=== PATIENT | female | born 1995 | race Caucasian/White ===

== ENCOUNTER 2017-02-25 06:15 | Inpatient (IN) ==
[2017-02-25] MEDS ORDERED: MEPERIDINE 50 MG/1 ML VIAL IM PRN (07:20)
[2017-02-25] MEDS ORDERED: ONDANSETRON 4 MG/2 ML VIAL IV PRN (07:20)
[2017-02-25] MEDS ORDERED: OXYTOCIN/LR 20 UNIT/1,000 ML BAG IV ONE (07:27)
[2017-02-25] MEDS ORDERED: OXYTOCIN/LR 20 UNIT/1,000 ML BAG IV SCH (07:30)
[2017-02-25] MEDS: LACTATED RINGERS 1,000 ML IV SCH ×2 (07:35→14:36)
[2017-02-25 07:36] LABS: Basophils % 0.3 % (0.0-0.8); Eosinophils # 0.1 10*3/uL (0.0-0.87); Eosinophils % 0.8 % (0.00-10.9); Hematocrit 32.5 VOL% (35.7-47.0); Hemoglobin 10.5 GM/DL (12.0-16.0); Immature Granulocytes % 1.5 %; Immature Granulocytes Absolute 0.15 #; Lymphocytes # 3.2 10*3/uL (1.4-4.0); Mean Corpuscular HGB Conc 32.3 GM/DL (32-36); Mean Corpuscular Hemoglobin 26 PG (27-34); Mean Corpuscular Volume 78.9 FL (87-102); Mean Platelet Volume 10.9 FL (9.6-12.0); Monocytes # 0.6 10*3/uL (0.11-0.8); Monocytes % 5.8 % (1.7-12.7); Neutrophils # 5.9 10*3/uL (1.4-7.4); Neutrophils % 59.6 % (38.7-73.9); Platelet Count 237 T/CUMM (130-400); Red Blood Count 4.12 MC/CUMM (3.8-5.5); Red Cell Distribution Width 13.4 % (9.3-17.3)
[2017-02-25 07:45] LABS: Alanine Aminotransferase 16 U/L (13-56); Albumin 2.7 G/DL (3.4-5.0); Alkaline Phosphatase 133 U/L (45-117); Aspartate Amino Transferase 17 U/L (0-37); Bilirubin,Total < 0.39 MG/DL (0.2-1.0); Blood Urea Nitrogen 9 MG/DL (7-18); Calcium 9.3 MG/DL (8.5-10.1); Glucose 94 MG/DL (74-106); Osmolality,Calculated 275.5 MOS/KG (273-304); Potassium 3.5 MMOL/L (3.5-5.1); Sodium 139 MMOL/L (136-145); Total Protein 6.7 G/DL (6.4-8.3); Uric Acid 5.2 MG/DL (2.6-6.0)
[2017-02-25] MEDS ORDERED: DINOPROSTONE VAG GEL 10 MG SYRINGE VAG ONE ×3 (08:45→17:00)
--- NOTE | 2017-02-25 09:04 | OB/GYN History & Physical ---
History of Present Illness Chief complaint: In for elective induction of labor due to term . History of present illness: Ms. Deng is a 21 year old female who is a primigravida. Her SUE is 2016 for an estimated gestational age of 39 weeks. The patient presents to the labor department for elective induction of labor due to term . The risk and benefits of been thoroughly discussed this patient and significant other, plan of care has been discussed with Dr. Payne and all parties are in agreement plan. The patient began her care at the [facility] and she received routine care and her course was uneventful. labs: She is O+, RPR is nonreactive, hepatitis B negative, HIV negative , rubella is immune, GBS cultures negative. Review of systems is negative with exception of above. Allergies Allergy/AdvReac Type Severity Reaction Status Date / Time No Known Allergies Allergy Verified 02/25/17 07:20 12 point system: reviewed and no additional remarkable complaints except as stated Medical,Surgical,& Family Hx - Medical History Medical History: noncontributory HEENT: History of: Ear Problem (PE TUBES A CHILD) - Surgical History Additional Surgical History: Cleft palate repair; PE tubes - Family History Family History: Reports;: Family Psychiatric Problems (MOTHER WITH MENTAL DISORDER), Additional Family History (THYROID-PGM) Denies;: Family Anesthesia Reaction, Family Cancer, Family Diabetes, Family Heart Disease, Family Hematology, Family Hypertension, Family Stroke - Social History Smoking Status: Never smoker Frequency of Alcohol Use: None Type of Drug Use: Marijuana (Used prior to ) Marital Status: Single Lives With:: Significant Other Functional capacity: independent ambulation 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: Vital Signs Temp Pulse Resp BP Pulse Ox 02/25/17 07:22 97.5 F L 98 H 20 121/66 99 General appearance: no acute distress - Antepartum / Post Antepartum Exam Cervix - Dilatation: 1-2 cm Effacement: 70% Station: -2 Rupture: Intact Presentation: Vertex Heart Rate: 130s Breast: bilateral: normal Abdomen obstetrics: Present: bowel sounds normal Vagina: Present: normal moisture, discharge Uterus exam: Present: enlarged - Head Head exam: Present: normal inspection - Respiratory Respiratory exam: Present: clear to auscultation bilaterally - Cardiovascular Cardiovascular exam: Present: regular rate and rhythm - GI/Abdominal GI/Abdominal exam: Present: normal bowel sounds, soft - Extremities Exam Extremities exam: Present: normal inspection - Back Exam Back exam: Present: normal inspection - Neurological Exam Neurological exam: Present: alert, oriented X3 - Psychiatric Psychiatric exam: Present: normal affect, normal mood - Skin Skin exam: Present: normal color, warm Assessment and Plan (1) Term Status: Acute Assessment and plan: Admit IV fluids IV Pitocin per protocol if indicated Prostin gel per protocol Artificial rupture membranes when appropriate Epidural anesthesia if desired Anticipate Current Visit: Yes Results - Labs CBC & BMP: 02/25/17 06:44 02/25/17 06:44
[2017-02-25] MEDS ORDERED: ePHEDrine 50 MG/ML AMP IV PRN (12:07)
[2017-02-25] MEDS ORDERED: FAMOTIDINE 20 MG/2 ML VIAL IV ONE (12:07)
[2017-02-25] MEDS ORDERED: LACTATED RINGERS 1,000 ML IV ONE (12:07)
[2017-02-25] MEDS ORDERED: CITRIC ACID/SODIUM CITRATE 30 ML UDCUP PO ONE (12:07)
[2017-02-25] MEDS ORDERED: fentaNYL 2 MCG/ROPIV 0.2% EPID 150 ML EPIDURAL SCH (12:08)
[2017-02-25] MEDS ORDERED: diphenhydrAMINE 50 MG/1 ML VIAL IV PRN ×2 (12:08)
[2017-02-25] MEDS ORDERED: hydrOXYzine HCL 25 MG/1 ML VIAL IM PRN (12:08)
[2017-02-25] MEDS ORDERED: BUTALBITAL/ACETAMIN/CAFFEINE 50-325-40 MG TABLET PO PRN (13:51)
[2017-02-25] MEDS ORDERED: SUMAtriptan 6 MG/0.5 ML VIAL SUBCUT ONE (13:51)
[2017-02-25 14:27] LABS: Apearance,Urine CLEAR (Clear); Bilirubin,Urine Negative (Negative); Blood, Urine Negative (Negative); Glucose,Urine (UA) Negative (Negative); Ketones,Urine Negative (Negative); Mucus,Urine Occasional /LPF (Occasional); Nitrite,Urine Negative (Negative); Protein,Urine Negative; RBC,Urine <1 /HPF (0-4); Urine Color Straw (Yellow); Urine Specific Gravity 1.003 (1.001-1.035); Urine Urobilinogen < 2.0 EU/DL (0.2-1.0); WBC,Urine <1 /HPF (0-6)
[2017-02-25] MEDS ORDERED: miSOPROStol 200 MCG TABLET ONE (18:52)
[2017-02-25] MEDS ORDERED: LIDOCAINE 1% 50 ML VIAL ONE (18:52)
--- NOTE | 2017-02-25 19:49 | Event Note ---
HPI: Ms. Sanders is a 21-year-old female who presented to labor department in for elective induction of labor due to term . The risk and benefits were thoroughly discussed with patient significant other, plan of care was discussed with Dr. Payne and all parties were in agreement plan. Stage I: The patient presented for elective induction of labor. She received Prostin gel per protocol and progress in labor adequately. She was then started on IV Pitocin per protocol and continue to progress in labor with a CAT 1 tracing. When the patient was approximately 8 cm she had artificial rupture membranes with clear fluid noted. She also received an epidural for pain control. The patient had an uneventful course of labor. Stage II: The patient was complete complain of pressure and desire to push. She pushed for approximately 20 minutes after which time the infant's head was delivered. The mouth nose suctioned on the perineum. The remainder the infant was delivered at 1936 a viable female infant was noted. Apgars were 9 at 1 minute and 9 at 5 minutes. weight was 7 pounds and 11 ounces. A cord pH was obtained and sent to the lab. The was placed on the mom's abdomen for skin to skin bonding. Stage III: A spontaneous delivery of a Mcmillan placenta with three-vessel cord noted. The placenta was further examined appeared to be grossly intact. The vagina cervix was inspected with no tears or lacerations noted. Estimated blood loss was approximately 150 cc. At the time of dictation mother and baby are both in stable condition.
[2017-02-25] MEDS ORDERED: ACETAMINOPHEN/CODEINE 300-30 MG TABLET PO PRN (19:53)
[2017-02-25 20:36] LABS: Cord Arterial Blood HCO3 20.4 MMOL/L
[2017-02-25 20:40] LABS: Cord Venous Blood HCO3 19.3 MMOL/L; Cord Venous Blood PCO2 35.8 MMHG; Cord Venous Blood PO2 24.6 MMHG
[2017-02-25] MEDS ORDERED: WITCH HAZEL PADS 100/JAR TOP PRN (21:56)
[2017-02-25] MEDS ORDERED: MEASLES/MUMPS/RUBELLA VACCINE 0.5 ML VIAL SUBCUT ONE (21:56)
[2017-02-25] MEDS ORDERED: BISACODYL 10 MG SUPP RECTAL PRN (21:56)
[2017-02-25] MEDS ORDERED: HYDROCORTISONE 2.5% RECTAL CREAM 30 GM TUBE TOP PRN (21:56)
[2017-02-25] MEDS ORDERED: RHO(D) IMMUNE GLOBULIN 300 MCG SYRINGE IM ONE (21:56)
[2017-02-25] MEDS ORDERED: DIPH/TET/ACEL PERT BOOSTER VACCINE 0.5 ML VIAL IM ONE (21:56)
[2017-02-25] MEDS ORDERED: oxyCODONE/ACETAMINOPHEN 5-325 MG TABLET PO PRN ×2 (21:56)
[2017-02-25] MEDS ORDERED: ACETAMINOPHEN 325 MG TABLET PO PRN (21:56)
[2017-02-25] MEDS ORDERED: LANOLIN 50% CREAM 0.3 OZ TUBE TOP PRN (21:56)
[2017-02-25] MEDS ORDERED: BENZOCAINE 20%/MENTHOL 0.5% SPRAY 56 GM CAN TOP PRN (21:56)
[2017-02-25] MEDS: IBUPROFEN 800 MG TABLET PO PRN (23:23)
[2017-02-25] MEDS: DOCUSATE SODIUM 100 MG CAPSULE PO SCH (23:46)
[2017-02-26 06:55] LABS: Basophils % 0.2 % (0.0-0.8); Eosinophils # 0.1 10*3/uL (0.0-0.87); Eosinophils % 0.5 % (0.00-10.9); Hematocrit 28.7 VOL% (35.7-47.0); Hemoglobin 9.4 GM/DL (12.0-16.0); Immature Granulocytes Absolute 0.13 #; Lymphocytes % 23.9 % (21.3-54.2); Mean Corpuscular HGB Conc 32.8 GM/DL (32-36); Mean Corpuscular Hemoglobin 26 PG (27-34); Mean Corpuscular Volume 78.4 FL (87-102); Mean Platelet Volume 10.4 FL (9.6-12.0); Monocytes # 0.9 10*3/uL (0.11-0.8); Monocytes % 7.2 % (1.7-12.7); Neutrophils # 8.4 10*3/uL (1.4-7.4); Neutrophils % 67.2 % (38.7-73.9); Platelet Count 190 T/CUMM (130-400); Red Blood Count 3.66 MC/CUMM (3.8-5.5); Red Cell Distribution Width 13.4 % (9.3-17.3); White Blood Count 12.5 T/CUMM (4-12)
[2017-02-26] MEDS: DOCUSATE SODIUM 100 MG CAPSULE PO SCH ×2 (09:37→21:34)
--- NOTE | 2017-02-26 09:39 | OB/GYN Progress Note ---
Assessment and Plan (1) Term Status: Acute Assessment and plan: Admit IV fluids IV Pitocin per protocol if indicated Prostin gel per protocol Artificial rupture membranes when appropriate Epidural anesthesia if desired Anticipate Current Visit: Yes (2) Vaginal delivery Status: Acute Assessment and plan: Initiate routine orders. 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 Bonding well with infant. 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 - Constitutional Vitals: Vital Signs Temp Pulse Resp BP Pulse Ox 02/26/17 07:22 98.1 F 74 20 105/56 98 02/26/17 04:00 96.4 F L 75 18 106/51 97 02/26/17 02:00 18 02/26/17 00:00 97.8 F 70 18 120/66 99 02/25/17 21:45 97.2 F L 76 18 106/65 96 02/25/17 20:00 97.3 F L 89 20 98/53 02/25/17 19:00 97.0 F L 02/25/17 16:00 98.0 F 87 18 111/59 97 02/25/17 12:00 97.6 F 95 H 18 116/75 General appearance: no acute distress - Antepartum / Post Antepartum Exam Breast: bilateral: normal Abdomen obstetrics: Present: bowel sounds normal Vagina: Present: normal moisture, discharge Uterus exam: Present: enlarged (Fundus firm and midline) - Head Head exam: Present: normal inspection - Respiratory Respiratory exam: Present: clear to auscultation bilaterally - Cardiovascular Cardiovascular exam: Present: regular rate and rhythm - GI/Abdominal GI/Abdominal exam: Present: normal bowel sounds - Extremities Exam Extremities exam: Present: normal inspection - Back Exam Back exam: Present: normal inspection - Neurological Exam Neurological exam: Present: alert, oriented X3 - Psychiatric Psychiatric exam: Present: normal affect, normal mood - Skin Skin exam: Present: normal color, warm Results - Labs CBC & BMP: 02/26/17 06:48 02/25/17 06:44
[2017-02-26] MEDS: FERROUS SULFATE 325 MG TABLET PO SCH ×2 (15:20→21:34)
[2017-02-26] MEDS: IBUPROFEN 800 MG TABLET PO PRN (18:19)
[2017-02-27 07:22] VITALS: BP 111/58
--- NOTE | 2017-02-27 09:16 | OB/GYN Progress Note ---
Assessment and Plan (1) Term Status: Acute Assessment and plan: Admit IV fluids IV Pitocin per protocol if indicated Prostin gel per protocol Artificial rupture membranes when appropriate Epidural anesthesia if desired Anticipate Current Visit: Yes (2) Vaginal delivery Status: Acute Assessment and plan: Initiate routine orders. Current Visit: Yes LIBR[employer]IAN [employer]RARY - PN: Subj Interval history: Stable with no complaints. Bonding well with infant. Exam [employer]IAN [employer]RARY - Constitutional Vitals: Vital Signs Temp Pulse Resp BP Pulse Ox 02/27/17 07:22 97.1 F L 72 18 111/58 97 02/27/17 04:20 97.8 F 79 18 103/53 96 02/27/17 03:00 18 02/27/17 02:20 16 02/27/17 01:00 16 02/27/17 00:20 97.4 F L 83 18 101/56 97 02/26/17 20:10 97.5 F L 84 18 115/68 96 02/26/17 16:00 97.9 F 84 18 108/66 98 02/26/17 11:23 97.2 F L 90 20 100/65 98 General appearance: no acute distress - Antepartum / Post Post Exam Breast: bilateral: normal Abdomen obstetrics: Present: bowel sounds normal Vagina: Present: normal moisture, discharge (Light lochia rubra) Uterus exam: Present: enlarged - Respiratory Respiratory exam: Present: clear to auscultation bilaterally - Cardiovascular Cardiovascular exam: Present: regular rate and rhythm - GI/Abdominal GI/Abdominal exam: Present: normal bowel sounds, soft - Extremities Exam Extremities exam: Present: normal inspection - Neurological Exam Neurological exam: Present: alert, oriented X3 - Psychiatric Psychiatric exam: Present: normal affect, normal mood - Skin Skin exam: Present: normal color, warm Results - Labs CBC & BMP: 02/26/17 06:48 02/25/17 06:44
[2017-02-27] MEDS: FERROUS SULFATE 325 MG TABLET PO SCH (09:38)
[2017-02-27] MEDS: DOCUSATE SODIUM 100 MG CAPSULE PO SCH (09:38)
[2017-02-27] MEDS: IBUPROFEN 800 MG TABLET PO PRN (09:39)
--- NOTE | 2017-02-27 09:49 | Anesthesia Post-Op ---
Anesthesia Post OP - Post Ansesthetic Evaluation Patient seen in post op: Yes Resp: within normal limits CV: within normal limits Mental: within normal limits Temp: within normal limits [id number]: within normal limits Nausea and Vomiting: within normal limits Pain: within normal limits
== END 2017-02-27 13:35 | disposition home or self-care (01) | DRG 775 ==
LOC: N.LDOUT 06:15 → N.LD 06:35 → N.OB 21:45
PROVIDERS: ADMIT Obstetrics & Gynecology; ATTEND Obstetrics & Gynecology